=== PATIENT | male | born 1955 | race African-American/Black ===

== ENCOUNTER 2018-06-08 14:47 | Emergency (ER) | payer SELFPAY ==
[~2018-06-08] VITALS: Ht 175.3 cm; Wt 79.4 kg
[2018-06-08 14:56] VITALS: BP 139/90
[2018-06-08] MEDS ORDERED: TRANEXAMIC ACID 1,000 MG/10 ML IV ONE (15:30)
== END 2018-06-08 16:43 | disposition home or self-care (01) ==
LOC: ER 14:47
DX: R04.0 Epistaxis (principal)
CPT/HCPCS: 96374; 99284